=== PATIENT | female | born 1940 | race Caucasian/White ===

== ENCOUNTER 2020-12-10 11:33 | Outpatient (CLI) | payer MEDICARE, SELFPAY ==
[2020-12-10 12:07] LABS: Anion Gap 9 mmol/L (8-16); Blood Urea Nitrogen 11 mg/dL (7-17); Calcium 9.6 mg/dL (8.4-10.2); Carbon Dioxide 28 mmol/L (22-30); Chloride 102 mmol/L (98-107); Estimated Glomerular Filt Rate > 60; Glucose 120 mg/dL (65-105); Potassium 4.3 mmol/L (3.4-5.0); Sodium 139 mmol/L (137-145)
== END 2020-12-10 11:34 | disposition home or self-care (01) ==
LOC: ANHSURGERY 11:36
PROVIDERS: Anesthesiology; PCP Internal Medicine Geriatric Medicine; Visit Provider Urology
DX: Z01.812 Encounter for preprocedural laboratory examination (principal); Z51.81 Encounter for therapeutic drug level monitoring; Z79.899 Other long term (current) drug therapy
CPT/HCPCS: 36415; 80048; 87077; 87086; 87088

== ENCOUNTER → 2020-12-17 01:00 | Outpatient (CLI) | payer MEDICARE, SELFPAY ==
[2020-12-17 17:24] LABS: SARS-CoV-2 RNA PCR Negative
== END ==
PROVIDERS: PCP Internal Medicine Geriatric Medicine; Visit Provider Urology
DX: Z01.812 Encounter for preprocedural laboratory examination (principal); Z20.822 Contact with and (suspected) exposure to COVID-19
CPT/HCPCS: C9803; U0003; U0005

== ENCOUNTER 2020-12-20 00:28 | Day surgery (SDC) | payer MEDICARE, SELFPAY ==
[2020-12-06 10:31] VITALS: BMI 27.6
--- NOTE | 2020-12-14 09:56 | PM.IMHP ---
H&P: HPI History of Present Illness Date/Time: 12/14/20 09:56 80-year-old woman with a cystocele. She underwent a robotic uterosacral vault suspension, rectocele repair, perineal repair, sling in 2016. Significant intra-abdominal scarring was noted. She has a Symptomatic cystocele which she desires repair. Chief Complaint: cystocele Review of Systems Review of Systems: All systems reviewed & are unremarkable except as noted in HPI and below PMFSH Past Medical History Medical History (Updated 12/14/20 @ 09:58 by Sumanth Bill MD) H/O vaginal delivery x 5 History of angina Hyperlipidemia Mitral valve disorder Osteopenia Thyroid disease Surgical History Surgical History History of cholecystectomy History of removal of skin mole History of total hysterectomy with bilateral salpingo-oophorectomy (BSO) Family History Family History Sibling Family history of malignant neoplasm of ovary Social History Social History Smoking status: Never smoker Second hand tobacco smoke exposure: No Alcohol intake: current Drinks per week: 2 Substance use: never Substance use type: does not use Spiritual care concerns: No Meds Home Medications and Allergies Home Medications Medication Instructions Recorded Confirmed Type atorvastatin 20 mg tablet 20 mg PO HS 03/25/20 12/06/20 History cholecalciferol (vitamin D3) 125 125 mcg PO DAILY 03/25/20 12/06/20 History mcg (5,000 unit) capsule estradiol 2 mg tablet 2 mg PO DAILY 03/25/20 12/06/20 History isosorbide dinitrate 30 mg tablet 30 mg PO QAM 03/25/20 12/06/20 History levothyroxine 75 mcg tablet 78 mcg PO DAILY 03/25/20 12/06/20 History progesterone micronized 100 mg 100 mg PO HS 03/25/20 12/06/20 History capsule progesterone micronized 200 mg 200 mg PO HS 03/25/20 12/06/20 History capsule spironolactone 100 mg tablet 100 mg PO DAILY 03/25/20 12/06/20 History Nutradhea Sr 15 mg DAILY 12/06/20 12/06/20 History coenzyme Q10 [Co Q-10] 1,000 mg PO DAILY 12/06/20 12/06/20 History cyclosporine [Restasis] 1 drp DAILY 12/06/20 12/06/20 History diltiazem HCl 120 mg PO QAM 12/06/20 12/06/20 History melatonin 1 mg PO HS 12/06/20 12/06/20 History testosterone 45 mg HS 12/06/20 12/06/20 History Allergies Allergy/AdvReac Type Severity Reaction Status Date / Time metronidazole [From Flagyl] Allergy Intermediate Rash Verified 12/06/20 10:19 Sulfa (Sulfonamide Allergy Unknown Rash Verified 12/06/20 10:19 Antibiotics) Exam Narrative: Exam Narrative: cystocele at +1 Const: General: cooperative HENMT: Head: normal to inspection Eyes: EOM: EOMs intact bilaterally Resp: Effort & Inspection: normal respiratory effort and able to speak in complete sentences GI: Inspection: normal to inspection : Bimanual Exam- Adnexa, other: cystocele Neuro: General: patient oriented x3 Assessment and Plan Assessment and plan (1) Cystocele: Status: Acute Assessment and Plan: cystocele repair
--- NOTE | 2020-12-19 16:14 | WPDANESEPPF ---
Anes - Initial Pre Proc Eval Procedure: Operation Date: 12/20/20 07:30 Proposed Procedures p Cystocele Repair - Sumanth Bill MD Date/Time: 12/19/20 16:14 Surgeon: Sumanth Bill MD Pre Op Diagnosis: cystocele Patient Data Age: 80 Gender: F Height: 1.63 m Weight: 73.18 kg Allergies Allergy/AdvReac Type Severity Reaction Status Date / Time metronidazole [From Flagyl] Allergy Intermediate Rash Verified 12/20/20 06:30 Sulfa (Sulfonamide Allergy Unknown Rash Verified 12/20/20 06:30 Antibiotics) Home Medications Medication Instructions Recorded Confirmed Type atorvastatin 20 mg tablet 20 mg PO HS 03/25/20 12/20/20 History cholecalciferol (vitamin D3) 125 125 mcg PO DAILY 03/25/20 12/20/20 History mcg (5,000 unit) capsule estradiol 2 mg tablet 2 mg PO DAILY 03/25/20 12/20/20 History isosorbide dinitrate 30 mg tablet 30 mg PO QAM 03/25/20 12/20/20 History levothyroxine 75 mcg tablet 78 mcg PO DAILY 03/25/20 12/20/20 History progesterone micronized 100 mg 100 mg PO HS 03/25/20 12/20/20 History capsule progesterone micronized 200 mg 200 mg PO HS 03/25/20 12/20/20 History capsule spironolactone 100 mg tablet 100 mg PO DAILY 03/25/20 12/20/20 History Nutradhea Sr 15 mg DAILY 12/06/20 12/20/20 History coenzyme Q10 [Co Q-10] 1,000 mg PO DAILY 12/06/20 12/20/20 History cyclosporine [Restasis] 1 drp DAILY 12/06/20 12/20/20 History diltiazem HCl 120 mg PO QAM 12/06/20 12/20/20 History melatonin 1 mg PO HS 12/06/20 12/20/20 History testosterone 45 mg HS 12/06/20 12/20/20 History Patient hx anesthesia problems: none Family hx anesthesia problems: none PMFSH Past Medical History Medical History (Updated 12/19/20 @ 16:14 by Catarino Viera MD) H/O vaginal delivery x 5 History of angina HTN (hypertension) Hyperlipidemia Mitral valve disorder Osteopenia Thyroid disease Surgical History Surgical History History of cholecystectomy History of removal of skin mole History of total hysterectomy with bilateral salpingo-oophorectomy (BSO) Family History Family History Sibling Family history of malignant neoplasm of ovary Social History Social History Smoking status: Never smoker Second hand tobacco smoke exposure: No Alcohol intake: current Drinks per week: 2 Substance use: never Substance use type: does not use Living arrangements: alone Spiritual care concerns: No Anes - Eval Final PreProcedure Day of Procedure 12/19/20 16:14 Patient weight: overweight Heart: regular rate and rhythm Lungs: clear to auscultation and normal air movement Airway: Mallampati scale class II Neurological: alert and oriented Last oral intake: >/= 8 hours ASA classification: III Emergent: no Anesthetic plan: proceed Anesthesia type and monitoring: general LMA Informed Consent: The patient's anesthetic plan and its attendant risks and benefits were discussed with the patient/family/POA. Questions were solicited and answers provided to the satisfaction of the patient/family/POA.
[2020-12-20] VITALS (7 sets, daily range): BP systolic 91–138; BP diastolic 49–65; PULSE 63–80; RESP 10–20; TEMP 36.2–36.3; O2SAT 94–100
[2020-12-20] MEDS: LACTATED RINGERS 1,000 ML 30 ML IV CONT ×2 (06:20→08:20)
--- NOTE | 2020-12-20 07:16 | WPDHPUPDATE1 ---
History and Physical Update Update Date/Time: 12/20/20 07:16 History and Physical has been reviewed, including an updated exam of the patient. There are NO changes in the patient's condition. Risks, benefits, and alternatives have been discussed and questions answered. Patient agrees to proceed with procedure.
[2020-12-20] MEDS: ceFAZolin 2 GM/D5W 50 ML 2 GM/50 ML BAG IVPB (07:25)
[2020-12-20] MEDS: BUPIVACAINE/EPINEPHRINE 0.25% 10 ML VIAL 30 ML INFILTRATE (07:53)
--- NOTE | 2020-12-20 08:15 | W.PM.PROC2 ---
Procedure Note - Detailed Date of Procedure 12/20/20 Pre-op Diagnosis cystocele, female perineal laxity Post-op Diagnosis same Procedure Performed Cystocele repair. Perineoplasty Surgeon Sumanth Bill MD Anesthesia general Indications This stone with anterior vaginal wall prolapse as well as perineal laxity. She presents for the above. She understands risks of bleeding, infection, recurrence, damage surrounding organs, dyspareunia. She agrees to proceed Findings Cystocele to the introitus. Perineal laxity. Description of Procedure She was correctly identified. Informed consent obtained. She from the operating room. She was given general anesthesia. She was placed in dorsal lithotomy position. She was prepped draped sterile fashion. Time-out performed. I placed Garrett catheter. I placed a [place] retractor. I anesthetized the anterior vaginal wall with local mixed with saline. A midline vaginal incision. I dissected the mucosa off the underlying fascial structures. I did this laterally and back to the apex. She had good apical support. I then performed a classic plication cystocele repair. I used 2 0 Vicryl suture. I trimmed excess vaginal mucosa. I closed the mucosa with a running 2 0 Vicryl. There is excellent support of the cystocele. I then anesthetized the ruth-shaped area of skin in the perineum. I removed this area of skin. I performed a perineoplasty with 0 Vicryl suture. I then used a 2 0 Vicryl to close the mucosa. There is excellent perineal support. There is no undue nearing the vagina. I then performed cystoscopy. The bladder is examined. There is mild trabeculations. No other bladder abnormalities. Both ureters were seen to excrete clear yellow urine. No surgical artifact or abnormalities the bladder. I then performed rectal exam which showed no stitches. I left the catheter out. She was awakened transferred to PACU in stable condition. Implants None Estimated Blood Loss 20 Drains No Packing No Pathology none sent Complications No immediate complications Condition stable Disposition PACU
[2020-12-20] MEDS: oxyCODONE HCL (*CRX) 5 MG TAB IR PO (09:51)
--- NOTE | 2020-12-20 09:52 | SUR.PHASEII ---
0950- pt voided x1. Some clots present.
== END 2020-12-20 10:05 | disposition home or self-care (01) ==
PROVIDERS: PCP Internal Medicine Geriatric Medicine; Visit Provider Urology
PROC: (CPT 57260; principal; 2020-12-20 07:30)
DX: N81.10 Cystocele, unspecified (principal); I10 Essential (primary) hypertension; E78.5 Hyperlipidemia, unspecified; E07.9 Disorder of thyroid, unspecified; M85.80 Other specified disorders of bone density and structure, unspecified site; I47.1 Supraventricular tachycardia; I25.10 Atherosclerotic heart disease of native coronary artery without angina pectoris; Z79.899 Other long term (current) drug therapy
CPT/HCPCS: 57240; 36415; 80048; 87077; 87086; 87088; A9270; C9803; J0131; J0690; J1100; J2370; J2405; J2704; J3010; J7030; J7120; U0003; U0005